=== PATIENT | female | born 1960 | race Caucasian/White ===

== ENCOUNTER 2016-08-26 20:41 | Emergency (ER) | payer OTHER | END 2016-08-26 22:56 | disposition home or self-care (01) | LOC: ER 20:41 | DX: S81.842A Puncture wound with foreign body, left lower leg, initial encounter (principal); W45.0XXA Nail entering through skin, initial encounter; I10 Essential (primary) hypertension; Z79.899 Other long term (current) drug therapy | CPT/HCPCS: 90715; 99282 ==